=== PATIENT | male | born 1950 | race Two or more races ===

== ENCOUNTER → 2024-10-27 08:18 | Outpatient (REF) | payer MEDICARE, BC, SELFPAY | LOC: HWRCS 08:18 | PROVIDERS: ATTENDING PHYSICIAN Internal Medicine Cardiovascular Disease; FAMILY PHYSICIAN Internal Medicine Geriatric Medicine | DX: I48.0 Paroxysmal atrial fibrillation (principal) | CPT/HCPCS: 93306 ==